=== PATIENT | female | born 1970 | race Native Hawaiian/Other Pacific Islander ===

== ENCOUNTER 2016-09-25 13:55 | Emergency (ER) | payer MEDICAID, OTHER ==
[2016-09-25] MEDS ORDERED: Sodium Chloride 0.9% 1000 ML 1,000 ML IV STA (14:49)
[2016-09-25] MEDS ORDERED: TORAdol 30 mg Injection IV ONE (14:49)
[2016-09-25] MEDS ORDERED: Zofran 4 MG/2 ML VIAL IV ONE (14:49)
--- NOTE | 2016-09-25 14:54 | ERPHSYRPT ---
- History of Present Illness Time Seen by Provider: 09/25/16 14:50 Source: patient Exam Limitations: no limitations Patient Subjective Stated Complaint: Pt states that she has had mid/lower back pain radiating into LLE. Pt says it gets worse when standing. 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 Also states she has a history of kidney infections. Triage Nursing Assessment: Pt alert and oriented x3. skin pink warm and dry. afebrile. no swelling or bruising noted to lower back Physician History: 46 y/o female comes to the ER with 3 day history of bilateral flank pain. Pt describes the pain as sharp, constant, as high as 8/10, with radiation down left thigh and not relieved by tylenol. Pt has been lifting heavy objects at work, up to 50 lbs. Pt has had kidney infections in the past and says she feels the same today. Pt also admits to occasional nausea and vomiting. Pt denies any fever, chills, dysuria, polyuria or hematuria. Timing/Duration: day(s) (3 days) Activites at Onset: none Quality: sharpness Onset Location: right flank, left flank Pain Radiation: other (left leg) Severity of Pain-Max: severe Severity of Pain-Current: severe Prior abdominal problems: none Modifying Factors: Improves With: nothing Associated Symptoms: denies symptoms Allergies/Adverse Reactions: No Known Drug Allergies Allergy (Unverified 09/25/16 14:13) Hx Tetanus, Diphtheria Vaccination/Date Given: (unsure) Hx Influenza Vaccination/Date Given: No Hx Pneumococcal Vaccination/Date Given: No - Review of Systems Constitutional: No Fever, No Chills Eyes: No Symptoms Ears, Nose, & Throat: No Symptoms Respiratory: No Cough, No Dyspnea Cardiac: No Chest Pain, No Edema, No Syncope Abdominal/Gastrointestinal: Nausea, Vomiting, No Abdominal Pain, No Diarrhea Genitourinary Symptoms: No Dysuria Musculoskeletal: Back Pain, No Neck Pain Skin: No Rash Neurological: No Dizziness, No Focal Weakness, No Sensory Changes Psychological: No Symptoms Endocrine: No Symptoms All Other Systems: Reviewed and Negative - Past Medical History Pertinent Past Medical History: No - Past Surgical History Past Surgical History: Yes Female Surgical History: Tubal Ligation - Social History Smoking Status: Never smoker Exposure to second hand smoke: Yes Drug Use: none Patient Lives Alone: No - Female History Hx Last Menstrual Period: n/a - Nursing Vital Signs Nursing Vital Signs: Initial Vital Signs Temperature 98.0 F Temperature Source Oral Pulse Rate 62 Respiratory Rate 18 Blood Pressure [Right Arm] 109/75 Pain Intensity 7 - Physical Exam General Appearance: no apparent distress, alert Eye Exam: PERRL/EOMI, eyes nml inspection Ears, Nose, Throat Exam: normal ENT inspection, TMs normal, pharynx normal, moist mucous membranes Neck Exam: normal inspection, non-tender, supple, full range of motion Respiratory Exam: normal breath sounds, lungs clear, No respiratory distress Cardiovascular Exam: regular rate/rhythm, normal heart sounds, normal peripheral pulses Gastrointestinal/Abdomen Exam: soft, normal bowel sounds, No tenderness, No mass Back Exam: normal inspection, normal range of motion, CVA tenderness, No vertebral tenderness Extremity Exam: normal inspection, normal range of motion, pelvis stable Neurologic Exam: alert, oriented x 3, cooperative, 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, normal mood/affect, sensation nml, No motor deficits Skin Exam: normal color, warm, dry Lymphatic Exam: No adenopathy SpO2: 97 Oxygen Delivery: Room Air - Course Nursing assessment & vital signs reviewed: Yes Ordered Tests: Active Orders 24 hr Category Date Time Status IV Insertion STAT Care 09/25/16 14:49 Active ABDOMEN AND PELVIS W/0 CONTRAS [CT] Stat Exams 09/25/16 14:48 Completed CBCD [CBC W DIFF] Stat Lab 09/25/16 15:20 Completed CMP Stat Lab 09/25/16 15:20 Completed CULTURE,URINE Stat Lab 09/25/16 14:48 Received UA W/ MICROSCOPIC Stat Lab 09/25/16 14:48 Completed Medication Summary Discontinued Medications Generic Name Dose Route Start Last Admin Trade Name Freq PRN Reason Stop Dose Admin Sodium Chloride 1,000 mls @ 999 mls/hr 09/25/16 14:49 09/25/16 15:05 Sodium Chloride 0.9% 1000 Ml IV 09/25/16 15:49 999 mls/hr .Q1H1M STA Administration Sodium Chloride Confirm 09/25/16 15:03 Sodium Chloride 0.9% 1000 Ml Administered 09/25/16 15:04 Dose 1,000 mls @ ud .ROUTE .STK-MED ONE Ketorolac Tromethamine 30 mg 09/25/16 14:49 07/14/17 15:05 Toradol 30 Mg Injection IV 09/25/16 14:50 30 mg STAT ONE Administration Ketorolac Tromethamine Confirm 09/25/16 15:03 Toradol 30 Mg Injection Administered 09/25/16 15:04 Dose 30 mg .ROUTE .STK-MED ONE Ondansetron HCl 4 mg 09/25/16 14:49 09/25/16 15:06 Zofran 4 Mg/2 Ml Vial IV 09/25/16 14:50 4 mg STAT ONE Administration Ondansetron HCl Confirm 09/25/16 15:03 Zofran 4 Mg/2 Ml Vial Administered 09/25/16 15:04 Dose 4 mg .ROUTE .STK-MED ONE Lab/Rad Data: Laboratory Result Diagrams 09/25/16 15:20 09/25/16 15:20 Laboratory Results 09/25/16 09/25/16 09/25/16 Range/Units 15:20 15:20 14:48 WBC 4.7 (4.0-10.5) K/mm3 RBC 4.52 (4.1-5.4) M/mm3 Hgb 13.7 (12.0-16.0) gm/dl Hct 40.1 (35-47) % MCV 88.7 (78-100) fl MCH 30.3 (26-32) pg MCHC 34.2 (32-36) g/dl RDW 13.0 (11.5-14.0) % Plt Count 266 (150-450) K/mm3 MPV 9.6 H (6-9.5) fl Gran % 52.5 (36.0-66.0) % Lymphocytes % 35.7 (24.0-44.0) % Monocytes % 8.9 (0.0-12.0) % Eosinophils % 2.5 (0.00-5.0) % Basophils % 0.4 (0.0-0.4) % Basophils # 0.02 (0-0.4) Sodium 141 (136-145) mEq/L Potassium 4.1 (3.5-5.1) mEq/L Chloride 105 (98-107) mEq/L Carbon Dioxide 25.9 (21-32) mEq/L Anion Gap 14.5 (5-15) MEQ/L BUN 14 (9-20) mg/dL Creatinine 0.77 (0.55-1.30) mg/dl Estimated GFR > 60 ML/MIN Glucose 87 (70-110) MG/DL Calcium 8.7 (8.5-10.1) mg/dL Total Bilirubin 0.40 (0.2-1.0) mg/dL AST 14 L (15-37) U/L ALT 24 (12-78) U/L Alkaline Phosphatase 69 (46-116) U/L Serum Total Protein 6.8 (6.4-8.2) gm/dL Albumin 3.5 (3.4-5.0) g/dL Ur Collection Type VOID Urine Color YELLOW (YELLOW) Urine Appearance CLEAR (CLEAR) Urine pH 7.0 (5-6) Ur Specific Gleason 1.010 (1.005-1.025) Urine Protein NEGATIVE (Negative) Urine Ketones NEGATIVE (NEGATIVE) Urine Blood NEGATIVE (0-5) Tani/ul Urine Nitrite NEGATIVE (NEGATIVE) Urine Bilirubin NEGATIVE (NEGATIVE) Urine Urobilinogen NORMAL (0-1) mg/dL Ur Leukocyte Esterase 2+ (NEGATIVE) Urine Microscopic WBC 0-2 (0-5) /HPF Ur Epithelial Cells FEW (FEW) /HPF Urine Bacteria MODERATE (NEGATIVE) /HPF Urine Mucus SLIGHT (NEGATIVE) /HPF Urine Glucose NEGATIVE (NEGATIVE) mg/dL Specimen Received 09/25/16 9818 - Progress Progress: improved Air Movement: good Progress Note: 09/25/16 16:[address] scan abd/pelvis does not show any acute findings.The rest of the labs including U/A are normal. Pt has relief of pain after receiving toradol. Pt will be d/c home on toradol for back strain. - Departure Time of Disposition: 16:19 Departure Disposition: Home Clinical Impression: Back strain Qualifiers: Encounter type: initial encounter Qualified Code(s): S39.012A - Strain of muscle, fascia and tendon of lower back, initial encounter Condition: Stable Critical Care Time: No Referrals: MARJORIE BENTON [Primary Care Provider] - Instructions: Low Back Pain Additional Instructions: Return to the ER if you should have worsening back pain. Prescriptions: Ketorolac Tromethamine [Toradol] 10 mg PO QID PRN #20 tablet PRN Reason: Pain
[2016-09-25] MEDS ORDERED: Sodium Chloride 0.9% 1000 ML 1,000 ML ONE (15:03)
[2016-09-25] MEDS ORDERED: TORAdol 30 mg Injection ONE (15:03)
[2016-09-25] MEDS ORDERED: Zofran 4 MG/2 ML VIAL ONE (15:03)
[2016-09-25 15:13] LABS: Bilirubin NEGATIVE (NEGATIVE); Blood NEGATIVE Ery/ul (0-5); COMPLETE URINE MICROSCOPIC? YES; Collection Type VOID; Glucose NEGATIVE (NEGATIVE); Leukocyte Esterase 2+ (NEGATIVE)
[2016-09-25 15:14] LABS: ADD URINE CULTURE? YES (NO); Bacteria MODERATE /HPF (NEGATIVE); Epithelial Cells FEW /HPF (FEW); Mucus SLIGHT /HPF (NEGATIVE); WBC 0-2 /HPF (0-5)
[2016-09-25 15:28] LABS: BASOPHIL % 0.4 % (0.0-0.4); Eosinophil % 2.5 % (0.00-5.0); Granulocytes % 52.5 % (36.0-66.0); Lymphocytes % 35.7 % (24.0-44.0); Mean Cell Volume 88.7 fl (78-100); Mean Corpuscular Hemoglobin 30.3 pg (26-32); Mean Platelet Volume 9.6 fl (6-9.5); Monocytes % 8.9 % (0.0-12.0); Platelet Count 266 K/mm3 (150-450); Red Blood Count 4.52 M/mm3 (4.1-5.4); White Blood Count 4.7 K/mm3 (4.0-10.5)
--- NOTE | 2016-09-25 15:33 | XRAY ---
Indication: Abdominal and low back pain for 3 days. Nausea and vomiting. Multiple contiguous axial images obtained through the abdomen and pelvis without contrast using renal stone protocol. Comparison: None Lung bases are clear. Heart is not enlarged. No renal calculus or evidence for obstructive uropathy in either system. A few bilateral pelvic phleboliths. Noncontrasted stomach and bowel loops appear nonobstructed. There is mild diffuse scattered colonic fecal debris throughout. Also scattered colonic diverticulosis greatest in the sigmoid. No evidence for diverticulitis. Normal appendix. No free fluid/air. Remaining liver, gallbladder, pancreas, spleen, adrenal glands, kidneys, ureters, bladder, and uterus appear unremarkable for noncontrast exam. Minimal aortoiliac calcifications without AAA. Osseous structures intact with minimal lumbar degenerative changes. Tiny fatty umbilical hernia. Impression: 1. Negative for renal calculus or evidence for obstructive uropathy. 2. Fecal stasis without obstruction. 3. Colonic diverticulosis without diverticulitis. 4. Tiny fatty umbilical hernia. CT DI 22.49
[2016-09-25 15:48] LABS: ALBUMIN 3.5 g/dL (3.4-5.0); ALKALINE PHOSPHATASE 69 U/L (46-116); ANION GAP 14.5 MEQ/L (5-15); BLOOD UREA NITROGEN 14 mg/dL (9-20); CHLORIDE 105 mEq/L (98-107); Carbon Dioxide 25.9 mEq/L (21-32); Glucose 87 MG/DL (70-110); Potassium 4.1 mEq/L (3.5-5.1); SGOT/AST 14 U/L (15-37); SGPT/ALT 24 U/L (12-78); SODIUM 141 mEq/L (136-145); Total Protein 6.8 gm/dL (6.4-8.2)
[2016-09-25 16:32] VITALS: BP 108/70; PULSE 84; O2SAT 100
== END 2016-09-25 16:32 | disposition home or self-care (01) ==
LOC: ED 13:55
DX: S39.012A Strain of muscle, fascia and tendon of lower back, initial encounter (principal); R10.9 Unspecified abdominal pain
CPT/HCPCS: 36000; 36415; 74176; 80053; 81000; 85025; 87086; 96360; 96374; 96375; 99284; J1885; J2405

== ENCOUNTER 2020-08-01 02:42 | Emergency (ER) | payer OTHER ==
[2020-08-01 03:02] VITALS: O2SAT 98
[2020-08-01] MEDS ORDERED: TORAdol 30 mg Injection IM ONE (03:14)
[2020-08-01] MEDS ORDERED: TORAdol 30 mg Injection ONE (03:20)
--- NOTE | 2020-08-01 03:31 | ERPHSYRPT ---
- History of Present Illness Source: patient Patient Subjective Stated Complaint: pt states she rolled her ankle when she j umped off of a hay truck. states she was able to walk on it after but pain increased after taking her shoe off Triage Nursing Assessment: pt alert and oriented, answers questions approp. pt back per wheelchair, transfers to stretcher per self with limping gait noted. respirations nonlabored. mild swelling noted to lateral lt ankle. pedal pulse and cap refill wnl. 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 Pain is moderate, and she denies other injuries, including head injury/C,T,L-spine pain/pelvis pain/UE pain. Method of Injury: twisted Occurred: other (Midnight) Quality: constant Severity of Pain-Max: moderate Severity of Pain-Current: moderate Lower Extremities Pain: ankle: left (TTP laterally/mod edema/good pedal pulse, distal sensation, and capillary return) Modifying Factors: Improves With: movement Associated Symptoms: snapping sensation, popping sensation Allergies/Adverse Reactions: No Known Drug Allergies Allergy (Unverified 09/25/16 14:13) Home Medications: No Reportable Medications [No Reported Medications] 08/01/20 [History] Hx Tetanus, Diphtheria Vaccination/Date Given: No (unsure) Hx Influenza Vaccination/Date Given: No Hx Pneumococcal Vaccination/Date Given: No Immunizations Up to Date: No Travel Risk - International Travel Have you traveled outside of the country in past 3 weeks: No - Coronavirus Screening Are you exhibiting any of the following symptoms?: No Close contact with a COVID-19 positive Pt in past 14-21 Days: No - Vaccine Status Have you recieved a Covid-19 vaccination: No - Review of Systems Constitutional: No Symptoms Eyes: No Symptoms Ears, Nose, & Throat: No Symptoms Respiratory: No Symptoms Cardiac: No Symptoms Abdominal/Gastrointestinal: No Symptoms Genitourinary Symptoms: No Symptoms Skin: No Symptoms Neurological: No Symptoms Psychological: No Symptoms Endocrine: No Symptoms Hematologic/Lymphatic: No Symptoms Immunological/Allergic: No Symptoms - Past Medical History Pertinent Past Medical History: No - Past Surgical History Past Surgical History: Yes Female Surgical History: Tubal Ligation - Social History Smoking Status: Never smoker Exposure to second hand smoke: Yes Drug Use: none Patient Lives Alone: No Significant Family History: no pertinent family hx - Nursing Vital Signs Nursing Vital Signs: Initial Vital Signs Temperature 97.9 F 08/01/20 02:50 Pulse Rate 93 H 08/01/20 02:50 Respiratory Rate 18 08/01/20 02:50 Blood Pressure 141/88 08/01/20 02:50 O2 Sat by Pulse Oximetry 98 08/01/20 02:50 Pain Scale Pain Intensity 4 - Physical Exam General Appearance: no apparent distress Eyes, Ears, Nose, Throat Exam: normal ENT inspection, TMs normal, pharynx normal Neck Exam: normal inspection, non-tender (C-spine nttp) Cardiovascular/Respiratory Exam: normal breath sounds, regular rate/rhythm, heart sounds normal Gastrointestinal/Abdominal Exam: non-tender, soft Back Exam: normal inspection, normal range of motion, No vertebral tenderness Hips Exam: bilateral: non-tender, normal inspection, normal range of motion Legs Exam: bilateral leg: non-tender, normal inspection, normal range of motion Knees Exam: bilateral knee: non-tender, normal inspection, normal range of motion Ankle Exam: left ankle: bone tenderness (L ankle ttp laterally/Mild-mod edema/Pain w inversion/Good pedal pulse, distal sensation, and capillary return) Foot Exam: bilateral foot: non-tender, normal inspection, normal range of motion, no evidence of injury Neuro/Tendon Exam: normal sensation, normal motor functions, normal tendon functions Mental Status Exam: alert, oriented x 3, cooperative Skin Exam: normal color, warm, dry SpO2 Interpretation: normal SpO2: 98 O2 Delivery: Room Air - Course Nursing assessment & vital signs reviewed: Yes - Radiology Exams Ankle X-ray Interpretation: Teleradiologist Report (Neg for fx per Telerad) Ordered Tests: Active Orders 24 hr Category Date Time Status Andriy Bandage Application -[facility] STAT Care 08/01/20 05:34 Completed Crutches STAT Care 08/01/20 05:34 Completed ANKLE (3 VIEWS) Stat Exams 08/01/20 03:55 Taken Medication Summary Discontinued Medications Generic Name Dose Route Start Last Admin Trade Name Freq PRN Reason Stop Dose Admin Ketorolac Tromethamine 60 mg 08/01/20 03:14 08/01/20 03:32 Toradol 30 Mg Injection IM 08/01/20 03:15 60 mg STAT ONE Administration Ketorolac Tromethamine Confirm 08/01/20 03:20 Toradol 30 Mg Injection Administered 08/01/20 03:21 Dose 60 mg .ROUTE .STK-MED ONE - Progress Progress Note: 08/01/20 03:34 60mg IM Toradol 08/01/20 05:35 Andriy wrap L ankle per nursing/NVI Crutches per nursing 08/01/20 05:38 Pt just wants to take Motrin or Alleve at home for pain Counseled pt/family regarding: diagnosis, need for follow-up, rad results - Departure Departure Disposition: Home Clinical Impression: Sprained ankle Condition: Stable Critical Care Time: No Referrals: MARJORIE BENTON [Primary Care Provider] - Instructions: Ankle Sprain (DC) Additional Instructions: Ice for 12-24 hours Weight bearing as tolerated Crutches as needed Follow up with family MD for continued pain
[2020-08-01 04:27] VITALS: PULSE 87
[2020-08-01 05:43] VITALS: BP 136/87
--- NOTE | 2020-08-01 09:49 | XRAY ---
Indication: Pain and swelling following injury. Comparison: None 3 view left ankle demonstrates anterolateral soft tissue swelling and small heel spurs. No other bony, articular, or soft tissue abnormalities. Comment: Preliminary interpretation was made by [facility]. No critical discrepancy.
== END 2020-08-01 05:58 | disposition home or self-care (01) ==
LOC: ED 02:42
DX: S93.402A Sprain of unspecified ligament of left ankle, initial encounter (principal); M25.572 Pain in left ankle and joints of left foot; Y93.39 Activity, other involving climbing, rappelling and jumping off; Y93.89 Activity, other specified; Y92.89 Other specified places as the place of occurrence of the external cause
CPT/HCPCS: 73610; 96372; 99284; J1885

== ENCOUNTER 2020-09-11 02:38 | Emergency (ER) | payer OTHER ==
[2020-09-11] MEDS ORDERED: CLEOCIN 150 MG CAPSULE PO ONE (03:33)
[2020-09-11] MEDS ORDERED: PERCOCET TABLET 5/325MG PO ONE (03:34)
[2020-09-11] MEDS ORDERED: Adacel Vial IM ONE (03:34)
[2020-09-11] MEDS ORDERED: PERCOCET TABLET 5/325MG ONE (03:42)
[2020-09-11] MEDS ORDERED: CLEOCIN 150 MG CAPSULE ONE (03:42)
[2020-09-11] MEDS ORDERED: TENIVAC VIAL IM ONE (03:42)
--- NOTE | 2020-09-11 03:42 | ERPHSYRPT ---
- History of Present Illness Time Seen by Provider: 09/11/20 03:33 Patient Subjective Stated Complaint: Patient states " I was outside yesterday messing with the chickens and then I started walking over to my daughters and felt like I stepped on something and by the time I got to my daughters my right great toe was throbbing." Triage Nursing Assessment: Patient arrived to ED and ambulated back to room with one crutch. Patient A/O times 4. Patient noted to have pinpoint dark spot under the skin under right great toe. Patient is able to bend toe R/T pain. Patient with unkept bilateral feet. Patient states she walks around barefoot alot outside and around house. No other areas of concern noted to bottoms of feet. Around pinpoint area under right toe appears aggravated and is slightly warm to touch. Patient afebrile upon arrival. Patient noted with non-pitting edema to bilateral lower extremities. + Pedal pulses noted bilateral. Lungs clear bilateral A/P throughout. Patient denies any SOB. Cap refill < 3 seconds. No S/S of acute respiratory distress noted. Patient denies any N/V. Patient denies any loose stools. Patient stated she did have flip flops on yesterday when she felt like she stepped on something. Physician History: 49 years old female presented in the ER with chief complaint of pain and swelling right great toe since yesterday. Patient reports she was walking and accidentally stepped on something sharp injuring her plantar aspect of big toe and since then is having increasing swelling and pain moderate to severe intensity sharp throbbing nature, making it difficult to weight-bear and has to use crutches. Denies any fever or chills. Unsure about tetanus status. Patient has a small puncture wound underneath right big toe with no discharge. Occurred: yesterday Quality: sharpness Severity of Pain-Max: moderate Severity of Pain-Current: moderate Lower Extremities Pain: 1st toe: right Modifying Factors: Improves With: immobilization, rest. Worsens With: movement Allergies/Adverse Reactions: No Known Drug Allergies Allergy (Unverified 09/11/20 02:49) Hx Tetanus, Diphtheria Vaccination/Date Given: No Hx Influenza Vaccination/Date Given: No Hx Pneumococcal Vaccination/Date Given: No Immunizations Up to Date: Yes Travel Risk - International Travel Have you traveled outside of the country in past 3 weeks: No - Coronavirus Screening Are you exhibiting any of the following symptoms?: No Close contact with a COVID-19 positive Pt in past 14-21 Days: No - Vaccine Status Have you recieved a Covid-19 vaccination: No - Review of Systems Constitutional: No Symptoms Eyes: No Symptoms Ears, Nose, & Throat: No Symptoms Respiratory: No Symptoms Cardiac: No Symptoms Abdominal/Gastrointestinal: No Symptoms Genitourinary Symptoms: No Symptoms Musculoskeletal: Injury, Joint Redness Skin: Induration Neurological: No Symptoms Psychological: No Symptoms Endocrine: No Symptoms Hematologic/Lymphatic: No Symptoms - Past Medical History Pertinent Past Medical History: No Neurological History: No Pertinent History ENT History: No Pertinent History Cardiac History: No Pertinent History Respiratory History: No Pertinent History Endocrine Medical History: No Pertinent History Musculoskeletal History: No Pertinent History GI Medical History: No Pertinent History History: No Pertinent History Psycho-Social History: No Pertinent History Female Reproductive Disorders: No Pertinent History - Past Surgical History Past Surgical History: Yes Neuro Surgical History: No Pertinent History Cardiac: No Pertinent History Respiratory: No Pertinent History Gastrointestinal: No Pertinent History Genitourinary: No Pertinent History Musculoskeletal: No Pertinent History Female Surgical History: Tubal Ligation - Social History Smoking Status: Never smoker Exposure to second hand smoke: No Drug Use: none Patient Lives Alone: Yes Significant Family History: no pertinent family hx - Female History Hx Last Menstrual Period: Tubal Hx Now: No - Nursing Vital Signs Nursing Vital Signs: Initial Vital Signs Temperature 98.1 F 09/11/20 02:49 Pulse Rate 99 H 09/11/20 02:49 Respiratory Rate 20 09/11/20 02:49 Blood Pressure 135/86 09/11/20 02:49 O2 Sat by Pulse Oximetry 96 09/11/20 02:49 Pain Scale Pain Intensity 6 - Physical Exam General Appearance: no apparent distress, alert Eyes, Ears, Nose, Throat Exam: normal ENT inspection Neck Exam: normal inspection, supple, full range of motion Cardiovascular/Respiratory Exam: normal breath sounds, regular rate/rhythm Hips Exam: bilateral: non-tender, normal inspection, normal range of motion Legs Exam: bilateral leg: non-tender, normal inspection, normal range of motion, no evidence of injury Foot Exam: right foot: infection, limited range of motion (Big toe), pain, soft tissue tenderness, swelling (Swollen right big toe with erythema all around. Small puncture wound at interphalangeal joint crease area on plantar aspect with clear discharge.) Neuro/Tendon Exam: normal sensation, normal motor functions, normal tendon functions Mental Status Exam: alert, oriented x 3, cooperative Skin Exam: normal color SpO2 Interpretation: normal SpO2: 96 O2 Delivery: Room Air Ordered Tests: Medication Summary Discontinued Medications Generic Name Dose Route Start Last Admin Trade Name Ki PRN Reason Stop Dose Admin Clindamycin HCl 300 mg 09/11/20 03:33 09/11/20 03:46 Cleocin 150 Mg Capsule PO 09/11/20 03:34 300 mg STAT ONE Administration Clindamycin HCl Confirm 09/11/20 03:42 Cleocin 150 Mg Capsule Administered 09/11/20 03:43 Dose 300 mg .ROUTE .STK-MED ONE Diphtheria/Tetanus/Acell Pertussis 0.5 ml 09/11/20 03:34 09/11/20 03:44 Adacel Vial IM 09/11/20 03:35 0.5 ml .ONCE ONE Administration Oxycodone/Acetaminophen 1 tab 09/11/20 03:34 09/11/20 03:46 Percocet Tablet 5/325mg PO 09/11/20 03:35 1 tab STAT ONE Administration Oxycodone/Acetaminophen Confirm 09/11/20 03:42 Percocet Tablet 5/325mg Administered 09/11/20 03:43 Dose 1 tab .ROUTE .STK-MED ONE Tetanus/Diphtheria Toxoids Adsorbed Confirm 09/11/20 03:42 Tenivac Vial Administered 09/11/20 03:43 Dose 0.5 ml IM .STK-MED ONE - Progress Progress: improved, pain not gone completely Progress Note: 09/11/20 03:37 She is given Percocet for pain. Started on clindamycin. Updated tetanus. I believe he has a puncture wound with resultant infection/cellulitis of the toe. X-rays do not show any obvious foreign body/fracture dislocation. Counseled pt/family regarding: diagnosis, need for follow-up, rad results - Departure Departure Disposition: Home Clinical Impression: Cellulitis of toe of right foot Condition: Stable Critical Care Time: No Referrals: MARJORIE BENTON [Primary Care Provider] - (1-2 days for reevaluation) CHLOÉ SONI DPM [ACTIVE STAFF] - (Call in the morning for reevaluation) Instructions: Cellulitis (Skin Infection), Adult (DC) Additional Instructions: Take pain medications as needed. Follow-up with podiatry for reevaluation. Continue with antibiotics. Stay off of your right foot. Return to ER for increasing pain swelling/redness involving proximal foot/fever chills or discharge. Prescriptions: Hydrocodone/APAP 5/325 [[place] 5/325 mg] 1 each PO Q6H PRN PRN #10 tablet MDD 6 PRN Reason: Pain Clindamycin HCl 150 mg [Cleocin 150 mg Capsule] 2 cap PO QID #56 capsule
[2020-09-11 03:53] VITALS: BP 141/83; PULSE 83
--- NOTE | 2020-09-11 09:00 | XRAY ---
Indication: Great toe pain and swelling. No known injury. Comparison: None 3 nonweightbearing views right foot demonstrates distal great toe soft tissue swelling and small plantar/tiny posterior heel spurs. No other bony, articular, or soft tissue abnormalities.
[2020-09-12 07:35] VITALS: O2SAT 96
== END 2020-09-11 03:55 | disposition home or self-care (01) ==
LOC: ED 02:38
DX: L03.031 Cellulitis of right toe (principal); W22.8XXA Striking against or struck by other objects, initial encounter; Y93.01 Activity, walking, marching and hiking; Y92.89 Other specified places as the place of occurrence of the external cause
CPT/HCPCS: 73630; 90471; 90714; 90715; 99284; A9270-GY

== ENCOUNTER 2023-03-13 13:07 | Emergency (ER) | payer OTHER ==
[2023-03-13 13:21] VITALS: TEMP 98; O2SAT 94
[2023-03-13] MEDS ORDERED: TORAdol 30 mg Injection IV ONE (13:26)
[2023-03-13] MEDS ORDERED: TORAdol 30 mg Injection ONE (13:58)
--- NOTE | 2023-03-13 14:01 | ERPHSYRPT ---
- History of Present Illness Time Seen by Provider: 03/13/23 13:56 Source: patient, EMS Exam Limitations: no limitations Patient Subjective Stated Complaint: C/O of mid to lower back pain following a fall at home on her porch. Patient states she fell trying to hold her dog back. Patient indicates she landed on her buttocks and did not hit her head. Triage Nursing Assessment: Patient arrived by ambulance. She is alert and oriented. No SOB. She is tearful. No bruising or skin alterations noted to area of pain. Skin tone normal. Physician History: C/O of mid to lower back pain following a fall at home on her porch. Patient states she fell trying to hold her dog back. Patient indicates she landed on her buttocks and did not hit her head. Timing/Duration: today Severity: moderate Associated Symptoms: denies symptoms Allergies/Adverse Reactions: No Known Drug Allergies Allergy (Verified 03/13/23 13:13) Hx Tetanus, Diphtheria Vaccination/Date Given: Yes Hx Influenza Vaccination/Date Given: No Hx Pneumococcal Vaccination/Date Given: No Immunizations Up to Date: Yes Travel Risk - International Travel Have you traveled outside of the country in past 3 weeks: No - Coronavirus Screening Are you exhibiting any of the following symptoms?: No Close contact with a COVID-19 positive Pt in past 14-21 Days: No - Vaccine Status Have you recieved a Covid-19 vaccination: Yes Cloth Tearer: Unknown - Vaccination Dates Dates if Unknown: ? - Review of Systems Constitutional: No Fever, No Chills Eyes: No Symptoms Ears, Nose, & Throat: No Symptoms Respiratory: No Cough, No Dyspnea Cardiac: No Chest Pain, No Edema, No Syncope Abdominal/Gastrointestinal: No Abdominal Pain, No Nausea, No Vomiting, No Diarrhea Genitourinary Symptoms: No Dysuria Musculoskeletal: Back Pain, Fall, No Neck Pain Skin: No Rash Neurological: No Dizziness, No Focal Weakness, No Sensory Changes Psychological: No Symptoms Endocrine: No Symptoms All Other Systems: Reviewed and Negative - Past Medical History Pertinent Past Medical History: No Neurological History: No Pertinent History ENT History: No Pertinent History Cardiac History: No Pertinent History Respiratory History: No Pertinent History Endocrine Medical History: No Pertinent History Musculoskeletal History: No Pertinent History GI Medical History: No Pertinent History History: No Pertinent History Psycho-Social History: No Pertinent History Female Reproductive Disorders: No Pertinent History - Past Surgical History Past Surgical History: Yes Neuro Surgical History: No Pertinent History Cardiac: No Pertinent History Respiratory: No Pertinent History Gastrointestinal: No Pertinent History Genitourinary: No Pertinent History Musculoskeletal: No Pertinent History Female Surgical History: Tubal Ligation - Social History Smoking Status: Never smoker Exposure to second hand smoke: No Drug Use: none Patient Lives Alone: No Significant Family History: no pertinent family hx - Nursing Vital Signs Nursing Vital Signs: Initial Vital Signs Blood Pressure 155/88 03/13/23 13:13 Pain Scale Pain Intensity 9 - Physical Exam General Appearance: no apparent distress, alert Eye Exam: PERRL/EOMI, eyes nml inspection Ears, Nose, Throat Exam: normal ENT inspection, TMs normal, pharynx normal, moist mucous membranes Neck Exam: normal inspection, non-tender, supple, full range of motion Respiratory Exam: normal breath sounds, lungs clear, No respiratory distress Cardiovascular Exam: regular rate/rhythm, normal heart sounds, normal peripheral pulses Gastrointestinal/Abdomen Exam: soft, normal bowel sounds, No tenderness, No mass Back Exam: normal inspection, decreased range of motion, muscle spasm, point tenderness, No CVA tenderness, No vertebral tenderness Extremity Exam: normal inspection, normal range of motion, pelvis stable Neurologic Exam: alert, oriented x 3, cooperative, normal mood/affect, nml cerebellar function, nml station & gait, sensation nml, No motor deficits Skin Exam: normal color, warm, dry, No rash Lymphatic Exam: No adenopathy SpO2: 94 O2 Delivery: Room Air - Course Nursing assessment & vital signs reviewed: Yes - Radiology Exams L-Spine X-ray Interpretation: Reviewed by me, Non-displaced Fracture (L5 compression fracture) Ordered Tests: Active Orders 24 hr Category Date Time Status LUMBAR COMPLETE (MIN 4 VIEWS) Stat Exams 03/13/23 13:21 Ordered Medication Summary Discontinued Medications Generic Name Dose Route Start Last Admin Trade Name Freq PRN Reason Stop Dose Admin Ketorolac Tromethamine 30 mg 03/13/23 13:26 Ketorolac Tromethamine 30 Mg/Ml Inj IV 03/13/23 13:27 STAT ONE - Progress Progress: improved, pain not gone completely Counseled pt/family regarding: diagnosis, need for follow-up, rad results Medical Desision Making - Diagnostic Testing Diagnostic test were ordered, analyzed, and reviewed by me: Yes Radiological Interpretation: Reviewed by me - Risk of complications Low Risk: Low risk of morbidity from additional dx testing or treatment - Departure Departure Disposition: Home Clinical Impression: Back pain at L4-L5 level, Fall (on) (from) other stairs and steps, initial encounter Vertebral fracture, closed Qualifiers: Encounter type: initial encounter Fracture of vertebra location: lumbar Lumbar vertebra fracture level: L5 Fracture morphology: wedge compression Qualified Code(s): S32.050A - Wedge compression fracture of fifth lumbar vertebra, initial encounter for closed fracture Condition: Stable Critical Care Time: No Referrals: MARJORIE BENTON [Primary Care Provider] - Follow up/PCP as directed Instructions: Contusion (DC), Preventing falls in adults, Vertebral Compression Fracture (DC) Additional Instructions: Discharge/Care Plan NIMISHA HAYDEN was seen on 03/13/23 in the Emergency Room. The patient was counseled regarding Diagnosis,Lab results, Imaging studies, need for follow up and when to return to the Emergency Room. Prescriptions given: Discharge Note I have spoken with the patient and/or caregivers. I have explained the patient's condition, diagnosis and treatment plan based on the information available to me at this time. I have answered the patient's and/or caregiver's questions and addressed any concerns. The patient and/or caregivers have as good understanding of the patient's diagnosis, condition and treatment plan as can be expected at this point. The vital signs have been stable. The patient's condition is stable and appropriate for discharge from the emergency department. The patient will pursue further outpatient evaluation with the primary care physician or other designated or consulting physician as outlined in the discharge instructions. The patient and/or caregivers are agreeable to this plan of care and follow-up instructions have been explained in detail. The patient and/or caregivers have received these instruction. The patient/and or caregivers are aware that any significant change in condition or worsening of symptoms should prompt an immediate return to this or the closest emergency department or call 911. NIMISHA HAYDEN was seen on 03/13/23 n the Emergency Room. At that time you were treated for an emergent condition, during your visit Laboratory, Radiology and/or other procedures may have been ordered. It is very important that you follow-up with your Primary Care Physician MARJORIE BENTON within the next 24-48 hours to review your Emergency Room visit and the final results of testing that was ordered. Some test results such as Urine Cultures, Blood Cultures, and other cultures if ordered will not be finalized for 24-48 hours. If you do not have a Primary Care Provider please call the medical records department at [phone] to obtain a copy of your results or you may sign into our patient portal to obtain these results by visiting us @ [email or web address] and completing the following steps: 1. Click on the Patient Portal link 2. Click the Patient Self Enrollment Link to complete the enrollment form and entering your 3. Once the enrollment form is completed you will receive an email with a temporary ID and password at the email address you provided. 4. Next choose a user name and password. Your user name must be at least 4 characters long and your password must be at least 4 characters long. 5. Choose a security question from the list and provide your answer to the question. If you already have signed into the Health Portal you may access your Health Care Information 05/10 by the following steps: 1. Login to our website @ [email or web address] 2. Enter your original user name and password. FAQS The [facility] Health Portal is an online tool that contains your Lab Results, Radiology Reports, Visit History, Discharge Instructions and Health Summary Lab and Radiology Results will not be available for 72 hours on the portal. The Portal is a secure site, passwords are encryted and URLs are re-written so they cannot be copied and pasted. You and authorized family members are the only ones who can access your Portal. Also there is a timeout feature that protects your information if you leave the Portal page open. If you have technical difficulty please use the Contact Us link on the page this will allow you to submit any questions you have regarding the Portal or you may contact the Medical Record Department at [phone]. Prescriptions: Cyclobenzaprine HCl 10 mg [Flexeril 10 MG] 10 mg PO TID #30 tablet Naproxen 375 mg [Naprosyn 375 mg] 375 mg PO Q8H #30 tablet
[2023-03-13 14:03] VITALS: BP 139/89; PULSE 68; RESP 18
--- NOTE | 2023-03-13 20:52 | XRAY ---
Indication: Pain following fall. Comparison: None 5 view lumbar spine demonstrates 5 lumbar segments with osteopenia, minimal/mild multilevel thoracolumbar degenerative spondylosis greatest at L5-S1, remote L1 superior endplate fracture with approximately 25% height loss, scattered aortic calcifications, and mild diffuse colonic fecal debris. No other bony, articular, or soft tissue abnormalities.
== END 2023-03-13 14:40 | disposition home or self-care (01) ==
LOC: ED 13:07
DX: S32.050A Wedge compression fracture of fifth lumbar vertebra, initial encounter for closed fracture (principal); W10.9XXA Fall (on) (from) unspecified stairs and steps, initial encounter; Y92.007 Garden or yard of unspecified non-institutional (private) residence as the place of occurrence of the external cause; M54.50 Low back pain, unspecified
CPT/HCPCS: 36000; 72110; 96374; 99283; J1885